=== PATIENT | male | born 1985 | race Caucasian/White ===

== ENCOUNTER 2020-03-20 12:42 | Outpatient (CLI) | payer OTHER ==
--- NOTE | 2020-03-20 13:33 | ULT ---
Scrotal sonogram with duplex evaluation HISTORY: Scrotal pain. FINDINGS: The right testicle is 3.3 cm length and the left 4.1 cm. Each has a normal sonographic appe arance with good color and spectral Doppler flow. Incidental note of a tiny cyst, 0.6 cm, at the right epididymal head. IMPRESSION : No significant abnormalities are demonstrated.
== END 2020-03-20 12:43 | disposition home or self-care (01) ==
LOC: BICULT 12:42
PROVIDERS: ATTEND Family Medicine
DX: N50.819 Testicular pain, unspecified (principal)
CPT/HCPCS: 76870; 93976